=== PATIENT | male | born 1955 | race Caucasian/White ===

== ENCOUNTER → 2020-06-08 | Outpatient (CLI) | payer MEDICARE ==
[~2020-06-08] MED LIST: GADOTERATE 5 MMOL/10ML VIAL. IVP ONE
--- NOTE | 2020-06-08 12:10 | RAD ---
EXAM: Brain MRI with and without contrast. HISTORY: Squamous cell lung cancer. Staging evaluation. TECHNIQUE: Multiplanar, multisequence magnetic resonance imaging of the brain was performed prior to and following the administration of intravenous contrast. COMPARISON: None. FINDINGS: There is no restricted diffusion to suggest acute or subacute infarction. There is no susce ptibility effect to suggest hemorrhage. There is no mass effect or midline shift. No suspicious enhan cing lesion is seen. There is no hydrocephalus. There are multiple small focal areas of signal change within the cerebral white matter, most commonly due to chronic small vessel disease in a patient of this age. There is evidence of lens surgery. The re is ethmoid sinus mucosal thickening and a tiny right maxillary sinus mucous retention cyst. There is benign asymmetry in the thickness of the left greater the right frontal bone. The presence of an o verlying right frontal scalp soft tissue defect favors a postoperative etiology. The mastoid air cells are clear. There are normal flow voids within the cerebral vessels. There is no suspicious finding involving the visualized proximal cervical spine. IMPRESSION: 1. No acute intracranial finding or evidence of intracranial metastatic disease. 2. Small focal areas of signal change within the cerebral white matter, likely due to chronic small v essel disease. Electronically signed by: Dawn Buckley MD (06/08/2020 12:08 PM) [id number]
--- NOTE | 2020-06-11 13:44 | RAD ---
EXAM: NM PET/CT SKULL BASE TO MID THIGH EXAM DATE: 06/08/2020 INDICATION: Lung cancer. Initial staging. RADIOPHARMACEUTICAL: 14.3 mCi of F-18 Fluorodeoxyglucose (FDG) I.V. via the right forearm. TECHNIQUE: Patient weight: 220 pounds. Following at least four-hour fasting, the patient's blood gluc ose was 116 mg/dl. Approximately 1 hour after administration of FDG, overlapping emission scanning w as performed from the orbital meatal line through the pelvis. A low-dose CT was performed for attenu ation correction purposes and anatomic localization. Fused images of PET and CT were reviewed. Any s tandardized uptake values (SUV) reported are maximum values within a volume region of interest, expre ssed in gm/ml. COMPARISON: CT angiogram chest of 05/30/2020 FINDINGS: PET: In the head and neck, no abnormal FDG uptake is appreciated. In the chest, extensive mediastinal and right hilar adenopathy shows abnormal FDG uptake, including t he superior right paratracheal britton station to a max SUV of 19.3, the right lower paratracheal britton station to a max SUV of 20.1, bulky right hilar mass or adenopathy to a max SUV of 17.1, and subcari nal britton lymphadenopathy to a max SUV of 15.6. For comparison, patient's background mediastinal acti vity shows a max SUV of 2.51. Previously described lobulated pleural-based right lower lobe pulmonary mass shows abnormal FDG activity to a max SUV of 20.3. In the abdomen and pelvis, no abnormal FDG uptake is apparent. No abnormal FDG uptake identified in the bones. CT: In the head and neck, no mass or adenopathy is apparent. In the chest, bulky mediastinal and right hilar adenopathy is present resulting in narrowing of the r ight upper lobe and right middle lobe bronchi. A few calcified mediastinal lymph nodes are also noted . Cardiovascular system shows multiple coronary calcifications. The lungs show moderate centrilobular pattern emphysema and post surgical changes consistent with wedge resection biopsies of the bilatera l lung apices. The right lower lobe lung nodule measures 3.8 x 2.9 x 3.7 cm and shows on image 148 of series 3, findings suspicious for local invasion into the subpleural fat. No pneumothorax or pleural effusion. No acute or aggressive appearing bony lesions. Chest wall shows radiopaque punctate foreig n bodies in the anterior right lateral chest wall and in the anterior left chest wall. These could re flect surgical clips from previous thoracoscopy. In the abdomen and pelvis, mild nodular fullness of the lateral limb left adrenal gland is present, s howing no abnormal FDG uptake. Solid abdominal organs otherwise are unremarkable. The bowel shows ext ensive colonic diverticulosis without findings of acute diverticulitis. No evidence of obstruction, p erforation or acute inflammation. No abdominal adenopathy or mass. The prostate measures 5.2 x 4.4 cm . No free fluid, fluid collection and no free air. Circumscribed sclerotic 8 mm lesion in the left sacrum is suggestive of a benign bone island. IMPRESSION: A nearly 4 cm right lower lobe lung mass is associated with bulky ipsilateral hilar and mediastinal l ymphadenopathy, consistent with a primary lung malignancy. There are no PET/CT findings suggestive of extrathoracic metastatic disease. Electronically signed by: Rupert Hernandez MD (06/11/2020 1:41 PM) [id number]
== END ==
LOC: PETSC 07:48
PROVIDERS: ATTEND Radiology Radiation Oncology
DX: C34.31 Malignant neoplasm of lower lobe, right bronchus or lung (principal); I73.9 Peripheral vascular disease, unspecified; J34.1 Cyst and mucocele of nose and nasal sinus; J34.89 Other specified disorders of nose and nasal sinuses
CPT/HCPCS: 70553; 78815; A9552; A9575

== ENCOUNTER → 2020-06-11 | Outpatient (CLI) | payer MEDICARE ==
[~2020-06-11] MED LIST changes: +ACET325T21 PO; +ALBU2.5V8 INH; +AMOX1TAB61 PO; +ASPI-886 PO; +BUDE10.2 IH; +CEFD300C PO; +CEPH750C6 PO; +DIGO125T3 PO; +DOCU-153 PO; +FENT1PAT17 TD; +FLUT1AER2 INH; +FORM20VI IH; -GADOTERATE 5 MMOL/10ML VIAL. IVP ONE; +GUAI100L12 PO; +HYDR-2761 PO; +HYDR25TA PO; +IPRA3AMP29 NEB; +LORA-434 PO; +MELA3TAB43 PO; +MULT200T10 PO; +OMEP40CA7 PO; +OXYC10TA PO; +PANT40TA77 PO; +PRED-220 PO; +SERT25TA PO; +TAMS0.4C97 PO
[2020-06-11 15:58] LABS: BASO # 0.1 x10^3/uL (0.0-0.2); BASO % 0 % (0-3); EOS # 0.2 x10^3/uL (0.0-0.7); EOS % 2 % (0-3); HEMATOCRIT 44.2 % (39.0-53.0); LYMPH # 2.6 x10^3/uL (1.0-4.8); LYMPH % 16 % (24-48); MEAN CORPUSCULAR HEMOGLOBIN 32 pg (25-35); MEAN CORPUSCULAR HGB CONC 34 g/dL (31-37); MEAN CORPUSCULAR VOLUME 95 fL (79-100); MONO # 0.8 x10^3/uL (0.0-1.1); MONO % 5 % (0-9); NEUT # 12.9 x10^3/uL (1.8-7.7); NEUT % 77 % (31-73); PLATELET COUNT 296 x10^3/uL (140-400); RED BLOOD COUNT 4.68 x10^6/uL (4.30-5.70); RED CELL DISTRIBUTION WIDTH 13.6 % (11.5-14.5); WHITE BLOOD COUNT 16.7 x10^3/uL (4.0-11.0)
[2020-06-11 16:03] LABS: CALCIUM 9.5 mg/dL (8.5-10.1); CREATININE 0.9 mg/dL (0.7-1.3); GFR 85.2; POTASSIUM 3.5 mmol/L (3.5-5.1)
[2020-06-11 16:09] LABS: ALBUMIN 3.5 g/dL (3.4-5.0); ALBUMIN/GLOBULIN RATIO 0.9 (1.0-1.7); TOTAL BILIRUBIN 0.5 mg/dL (0.2-1.0); TOTAL PROTEIN 7.5 g/dL (6.4-8.2)
[2020-06-11 17:07] LABS: % EOS 1 % (0-5); % LYMPHS 11 % (24-48); % MONOS 6 % (0-10); % SEGS 82 % (35-66); PLT ESTIMATE ADEQUATE (ADEQUATE)
== END ==
LOC: ONCLAB 15:26
PROVIDERS: ATTEND Internal Medicine Hematology & Oncology
DX: C34.31 Malignant neoplasm of lower lobe, right bronchus or lung (principal)
CPT/HCPCS: 36415; 80053; 85007; 85025

== ENCOUNTER 2020-06-18 08:52 | Outpatient (CLI) | payer MEDICARE ==
[~2020-06-18] VITALS: Ht 188 cm; Wt 102.1 kg
[2020-06-18] MEDS ORDERED: ceFAZolin SODIUM IV Push 1 GM VIAL. IVP ONE (09:00)
[2020-06-18] MEDS ORDERED: BUDE10.2 IH (09:37)
[2020-06-18] MEDS ORDERED: HYDR-2761 PO (09:37)
[2020-06-18] MEDS ORDERED: HYDR25TA PO (09:37)
[2020-06-18] MEDS ORDERED: MULT200T10 PO (09:37)
[2020-06-18] MEDS ORDERED: MELA3TAB43 PO (09:37)
[2020-06-18] MEDS ORDERED: OMEP40CA7 PO (09:37)
[2020-06-18] MEDS ORDERED: ALBU2.5V8 INH (09:37)
[2020-06-18] MEDS ORDERED: FORM20VI IH (09:37)
[2020-06-18 09:42] LABS: BASO # 0.1 x10^3/uL (0.0-0.2); BASO % 1 % (0-3); EOS # 0.3 x10^3/uL (0.0-0.7); EOS % 2 % (0-3); HEMATOCRIT 35.5 % (39.0-53.0); HEMOGLOBIN 12.2 g/dL (13.0-17.5); LYMPH # 1.1 x10^3/uL (1.0-4.8); LYMPH % 10 % (24-48); MEAN CORPUSCULAR HEMOGLOBIN 33 pg (25-35); MEAN CORPUSCULAR HGB CONC 35 g/dL (31-37); MEAN CORPUSCULAR VOLUME 96 fL (79-100); MONO # 0.8 x10^3/uL (0.0-1.1); MONO % 7 % (0-9); NEUT # 9.3 x10^3/uL (1.8-7.7); NEUT % 81 % (31-73); PLATELET COUNT 251 x10^3/uL (140-400); RED BLOOD COUNT 3.71 x10^6/uL (4.30-5.70); RED CELL DISTRIBUTION WIDTH 13.5 % (11.5-14.5); WHITE BLOOD COUNT 11.5 x10^3/uL (4.0-11.0)
[2020-06-18 09:46] VITALS: BP 122/75
[2020-06-18 09:51] LABS: CREATININE 0.8 mg/dL (0.7-1.3); GFR 97.3; POTASSIUM 3.9 mmol/L (3.5-5.1)
[2020-06-18 09:52] LABS: PROTHROMBIN TIME PATIENT 13.4 SEC (11.7-14.0)
[2020-06-18 09:57] LABS: ALBUMIN 2.7 g/dL (3.4-5.0); ALBUMIN/GLOBULIN RATIO 0.6 (1.0-1.7); TOTAL BILIRUBIN 0.8 mg/dL (0.2-1.0); TOTAL PROTEIN 7.2 g/dL (6.4-8.2)
[2020-06-18] MEDS ORDERED: ALBUTEROL SULFATE 2.5 MG/3 ML NEBU. ONE (10:09)
[2020-06-18] MEDS ORDERED: ALBUTEROL SULFATE 2.5 MG/3 ML NEBU. NEB ONE (10:15)
[2020-06-18] MEDS ORDERED: LIDOCAINE 2%/EPI 1:100,000 20 ML VIAL. ONE (10:47)
[2020-06-18] MEDS ORDERED: fentaNYL PF VIAL 100 MCG/2 ML VIAL ONE (11:21)
[2020-06-18] MEDS ORDERED: MIDAZOLAM HCL/PF 5 MG/5 ML VIAL. ONE (11:21)
[2020-06-18] MEDS ORDERED: fentaNYL PF VIAL 100 MCG/2 ML VIAL IV ONE (11:45)
[2020-06-18] MEDS ORDERED: LIDOCAINE 2%/EPI 1:100,000 20 ML VIAL. IJ ONE (11:45)
[2020-06-18] MEDS ORDERED: MIDAZOLAM HCL/PF 5 MG/5 ML VIAL. IV ONE (11:45)
[2020-06-18 11:57] VITALS: BP 111/72
[2020-06-18 12:05] VITALS: BP 134/72
[2020-06-18 12:20] VITALS: BP 128/79
[2020-06-18 12:35] VITALS: BP 134/78
[2020-06-18 12:50] VITALS: BP 129/78
--- NOTE | 2020-06-18 13:15 | NUR ---
Patient taken to [facility] via wheelchair by RN. PIV removed. No bleeding at port site, bandage present. Family accompanied patient. On home O2. Instructions provided on site care, moderate sedation, portacath. Verbalized understanding. All belongings taken w/ patient at time of d/c from [facility].
--- NOTE | 2020-06-19 10:17 | RAD ---
Procedure: Ultrasound and fluoroscopically guided placement of left internal jugular power port.. 06/19/2020 8:12 AM Clinical Indication: LUNG CA Sedation: Conscious sedation was administered for 32 minutes. The patient was monitored by a qualified independent observer throughout the time of sedation. Please refer to the medical record for exact doses of medications utilized to achieve moderate sedation. Fluoroscopy time: 0.8 minutes Dose area product: 4 Gycm2 Consent: The procedure was explained in its entirety to the patient or the patients designated insurance follow up representative by a member of the treatment team, including a discussion of the risks, benefits and commonly accepted alternatives to the procedure, as well as the expected consequences of no therapy whatsoever. Discussion of the risks included, but was not limited to, those that are most frequent and those that are rare but possibly severe or life-threatening, as well as the possibility of unforeseen complications. Technique and Findings: All elements of maximal sterile barrier technique including the use of a cap, mask, sterile gown, sterile gloves, large sterile sheet, appropriate hand hygiene, and 2% chlorhexidine for cutaneous antisepsis (or acceptable alternative antiseptic per current guidelines) were followed for this procedure. Following informed consent, and a timeout procedure, the patient was prepped and draped in the usual sterile fashion. Ultrasound interrogation of the left neck revealed patency and compressibility of the right internal jugular vein. A 21-gauge micropuncture was then used to gain access to this vein under ultrasound guidance. A hard copy ultrasound image was recorded. The needle was exchanged over a wire for a sheath. A 1 inch incision was made several centimeters inferior to the venotomy site. A catheter was tunneled from this site dermatotomy site in the neck. Catheter was advanced through peel-away sheath such that its tip was in the proximal right atrium with the patient supine. The catheter was trimmed to length and connected to the port reservoir. The port was found to flush and aspirate normally. The wound was closed in layers using 4-0 Vicryl suture. Sterile dressings were applied. Impression: Successful ultrasound and fluoroscopically guided placement of a left internal jugular PowerPort
--- NOTE | 2020-07-07 10:50 | RAD ---
Chest AP portable 07/07/2020. Reason for exam: Chest pain and shortness of air. Comparison is made with a study of 06/18/2020. A Port-A-Cath remains in place. There still evidence of pulmonary fibrosis on each side. An opacity i n the mid right lung has regressed. There is still fullness of the right hilum. No new consolidation or pleural fluid is seen. The heart does not appear enlarged. IMPRESSION: Regression of right-sided opacity. No apparent new infiltrate. Electronically signed by: Delroy Medina Jr., MD (07/07/2020 10:48 AM) [id number]
[2020-08-03] MEDS ORDERED: SERT25TA PO (22:23)
[2020-08-03] MEDS ORDERED: OXYC10TA PO (22:23)
[2020-08-03] MEDS ORDERED: TAMS0.4C97 PO (22:23)
[2020-08-03] MEDS ORDERED: PANT40TA77 PO (22:23)
[2020-08-03] MEDS ORDERED: DIGO125T3 PO (22:23)
[2020-08-03] MEDS ORDERED: CEPH750C6 PO (22:23)
[2020-08-03] MEDS ORDERED: LORA-434 PO (22:23)
[2020-08-07] MEDS ORDERED: CEFD300C PO (08:40)
[2020-08-29] MEDS ORDERED: AMOX1TAB61 PO (11:41)
[2020-08-29] MEDS ORDERED: ACET325T21 PO (11:41)
[2020-08-29] MEDS ORDERED: PRED-220 PO (11:41)
[2020-08-29] MEDS ORDERED: GUAI100L12 PO (11:41)
[2020-08-29] MEDS ORDERED: IPRA3AMP29 NEB (11:41)
[2020-08-29] MEDS ORDERED: ASPI-886 PO (11:41)
[2020-08-29] MEDS ORDERED: FENT1PAT17 TD (11:41)
[2020-08-29] MEDS ORDERED: DOCU-153 PO (11:41)
[2020-08-29] MEDS ORDERED: FLUT1AER2 INH (11:41)
== END 2020-06-18 13:00 | disposition home or self-care (01) ==
LOC: INTRAD 08:52
PROVIDERS: ATTEND Internal Medicine Hematology & Oncology
DX: Z45.2 Encounter for adjustment and management of vascular access device (principal); C34.90 Malignant neoplasm of unspecified part of unspecified bronchus or lung; J44.9 Chronic obstructive pulmonary disease, unspecified; K21.9 Gastro-esophageal reflux disease without esophagitis; Z87.891 Personal history of nicotine dependence; Z79.899 Other long term (current) drug therapy; Z98.890 Other specified postprocedural states; Z88.5 Allergy status to narcotic agent
CPT/HCPCS: 36415; 36561; 76937; 77001; 80053; 85025; 85610; 87426; 94640; 99152; 99153; C1751; C1892; J0690; J2250; J3010; J3490; J7613; U0003; C9803

== ENCOUNTER → 2020-06-18 | Outpatient (CLI) | payer MEDICARE ==
[~2020-06-18] MED LIST changes: -ACET325T21 PO; -AMOX1TAB61 PO; -ASPI-886 PO; -CEFD300C PO; -CEPH750C6 PO; -DIGO125T3 PO; -DOCU-153 PO; -FENT1PAT17 TD; -FLUT1AER2 INH; -GUAI100L12 PO; -IPRA3AMP29 NEB; -LORA-434 PO; +OMEP40CA45 PO; -OMEP40CA7 PO; -OXYC10TA PO; -PANT40TA77 PO; -PRED-220 PO; -SERT25TA PO; -TAMS0.4C97 PO
[2020-06-18 12:50] VITALS: BP 129/78
[2020-06-18 14:20] LABS: BASO # 0.1 x10^3/uL (0.0-0.2); BASO % 1 % (0-3); EOS # 0.3 x10^3/uL (0.0-0.7); EOS % 2 % (0-3); HEMATOCRIT 35.1 % (39.0-53.0); LYMPH # 0.9 x10^3/uL (1.0-4.8); LYMPH % 9 % (24-48); MEAN CORPUSCULAR HEMOGLOBIN 33 pg (25-35); MEAN CORPUSCULAR HGB CONC 34 g/dL (31-37); MEAN CORPUSCULAR VOLUME 95 fL (79-100); MONO # 0.8 x10^3/uL (0.0-1.1); MONO % 8 % (0-9); NEUT # 8.4 x10^3/uL (1.8-7.7); NEUT % 81 % (31-73); PLATELET COUNT 247 x10^3/uL (140-400); RED BLOOD COUNT 3.69 x10^6/uL (4.30-5.70); RED CELL DISTRIBUTION WIDTH 13.4 % (11.5-14.5); WHITE BLOOD COUNT 10.5 x10^3/uL (4.0-11.0)
[2020-06-18 14:39] LABS: CALCIUM 8.8 mg/dL (8.5-10.1); CREATININE 0.9 mg/dL (0.7-1.3); POTASSIUM 3.9 mmol/L (3.5-5.1)
[2020-06-18 14:51] LABS: ALBUMIN 2.5 g/dL (3.4-5.0); ALBUMIN/GLOBULIN RATIO 0.5 (1.0-1.7); TOTAL BILIRUBIN 0.5 mg/dL (0.2-1.0); TOTAL PROTEIN 7.1 g/dL (6.4-8.2)
== END ==
LOC: ONCLAB 14:12
PROVIDERS: ATTEND Physician Assistant
DX: C34.31 Malignant neoplasm of lower lobe, right bronchus or lung (principal)
CPT/HCPCS: 36415; 80053; 83615; 85025

== ENCOUNTER → 2020-06-26 | Outpatient (CLI) | payer MEDICARE ==
[2020-06-24 11:16] VITALS: BP 146/100
[2020-06-26 08:37] LABS: BASO # 0.1 x10^3/uL (0.0-0.2); BASO % 0 % (0-3); EOS # 0.2 x10^3/uL (0.0-0.7); EOS % 1 % (0-3); HEMATOCRIT 40.1 % (39.0-53.0); HEMOGLOBIN 13.1 g/dL (13.0-17.5); LYMPH # 0.8 x10^3/uL (1.0-4.8); LYMPH % 5 % (24-48); MEAN CORPUSCULAR HEMOGLOBIN 31 pg (25-35); MEAN CORPUSCULAR HGB CONC 33 g/dL (31-37); MEAN CORPUSCULAR VOLUME 96 fL (79-100); MONO # 0.6 x10^3/uL (0.0-1.1); MONO % 4 % (0-9); NEUT # 15.4 x10^3/uL (1.8-7.7); NEUT % 90 % (31-73); PLATELET COUNT 239 x10^3/uL (140-400); RED BLOOD COUNT 4.19 x10^6/uL (4.30-5.70); RED CELL DISTRIBUTION WIDTH 13.6 % (11.5-14.5); WHITE BLOOD COUNT 17.1 x10^3/uL (4.0-11.0)
[2020-06-26 08:43] LABS: CALCIUM 8.9 mg/dL (8.5-10.1); CREATININE 0.9 mg/dL (0.7-1.3); POTASSIUM 3.8 mmol/L (3.5-5.1)
[2020-06-26 08:59] LABS: ALBUMIN 2.6 g/dL (3.4-5.0); ALBUMIN/GLOBULIN RATIO 0.7 (1.0-1.7); TOTAL BILIRUBIN 0.4 mg/dL (0.2-1.0); TOTAL PROTEIN 6.5 g/dL (6.4-8.2)
[2020-06-26 11:27] LABS: % EOS 3 % (0-5); % LYMPHS 4 % (24-48); % MONOS 2 % (0-10); % MYELOS 2 % (0-0); % SEGS 89 % (35-66)
[2020-06-26 11:29] LABS: PLT ESTIMATE ADEQUATE (ADEQUATE)
== END ==
LOC: ONCLAB 08:15
PROVIDERS: ATTEND Internal Medicine Hematology & Oncology
DX: C34.31 Malignant neoplasm of lower lobe, right bronchus or lung (principal)
CPT/HCPCS: 36415; 80053; 85007; 85025

== ENCOUNTER → 2020-06-28 | Outpatient (CLI) | payer MEDICARE ==
[2020-06-24 11:16] VITALS: BP 146/100
[2020-06-28 10:19] LABS: BASO % 0 % (0-3); EOS # 0.2 x10^3/uL (0.0-0.7); EOS % 1 % (0-3); HEMATOCRIT 39.7 % (39.0-53.0); HEMOGLOBIN 12.9 g/dL (13.0-17.5); LYMPH # 0.9 x10^3/uL (1.0-4.8); LYMPH % 6 % (24-48); MEAN CORPUSCULAR HEMOGLOBIN 31 pg (25-35); MEAN CORPUSCULAR HGB CONC 33 g/dL (31-37); MEAN CORPUSCULAR VOLUME 96 fL (79-100); MONO # 0.7 x10^3/uL (0.0-1.1); MONO % 5 % (0-9); NEUT # 13.1 x10^3/uL (1.8-7.7); NEUT % 88 % (31-73); PLATELET COUNT 231 x10^3/uL (140-400); RED BLOOD COUNT 4.13 x10^6/uL (4.30-5.70); RED CELL DISTRIBUTION WIDTH 13.9 % (11.5-14.5); WHITE BLOOD COUNT 14.9 x10^3/uL (4.0-11.0)
[2020-06-28 10:27] LABS: CALCIUM 8.6 mg/dL (8.5-10.1); CREATININE 0.9 mg/dL (0.7-1.3)
== END ==
LOC: ONCLAB 09:45
PROVIDERS: ATTEND Physician Assistant
DX: C34.31 Malignant neoplasm of lower lobe, right bronchus or lung (principal)
CPT/HCPCS: 36415; 80048; 85025

== ENCOUNTER 2020-06-29 21:51 | Emergency (ER) | payer MEDICARE ==
[~2020-06-29] VITALS: Ht 195.6 cm; Wt 98.6 kg
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
[2020-06-29] MEDS ORDERED: ASPIRIN CHEWABLE 81 MG TABLET. PO ONE (22:45)
[2020-06-29 22:59] LABS: BASO % 0 % (0-3); EOS # 0.1 x10^3/uL (0.0-0.7); EOS % 1 % (0-3); HEMATOCRIT 39.4 % (39.0-53.0); HEMOGLOBIN 13.2 g/dL (13.0-17.5); LYMPH # 0.8 x10^3/uL (1.0-4.8); LYMPH % 6 % (24-48); MEAN CORPUSCULAR HEMOGLOBIN 32 pg (25-35); MEAN CORPUSCULAR HGB CONC 33 g/dL (31-37); MEAN CORPUSCULAR VOLUME 95 fL (79-100); MONO # 0.7 x10^3/uL (0.0-1.1); MONO % 5 % (0-9); NEUT # 13.3 x10^3/uL (1.8-7.7); NEUT % 89 % (31-73); PLATELET COUNT 211 x10^3/uL (140-400); RED BLOOD COUNT 4.13 x10^6/uL (4.30-5.70)
[2020-06-29 23:09] LABS: PROTHROMBIN TIME PATIENT 12.3 SEC (11.7-14.0)
[2020-06-29 23:13] LABS: CALCIUM 8.6 mg/dL (8.5-10.1); GFR 75.2; POTASSIUM 4.2 mmol/L (3.5-5.1)
[2020-06-29 23:19] LABS: ALBUMIN 2.7 g/dL (3.4-5.0); ALBUMIN/GLOBULIN RATIO 0.7 (1.0-1.7); MAGNESIUM 2.3 mg/dL (1.8-2.4); TOTAL BILIRUBIN 0.3 mg/dL (0.2-1.0); TOTAL PROTEIN 6.5 g/dL (6.4-8.2)
[2020-06-29 23:20] LABS: % BANDS 2 % (0-9); % EOS 1 % (0-5); % LYMPHS 8 % (24-48); % METAS 2 % (0-0); % MONOS 4 % (0-10); % MYELOS 2 % (0-0); % SEGS 81 % (35-66)
[2020-06-29 23:21] LABS: PLT ESTIMATE ADEQUATE (ADEQUATE)
[2020-06-29] MEDS ORDERED: dilTIAZem IV PUSH 25 MG/5 ML VIAL IVP ONE (23:30)
[2020-06-29] MEDS ORDERED: IOHEXOL 350 MG/ML 100 ML VIAL. IV ONE (23:45)
[2020-06-29] MEDS ORDERED: CONTRAST GIVEN. MC PRN (23:45)
--- NOTE | 2020-06-30 00:04 | RAD ---
CTA scan of the Chest with Contrast (Pulmonary Embolism protocol) 06/29/2020 Clinical History: Chest pain. History of lung cancer. Technique: After the intravenous administration of 100 cc of Omnipaque 350, contiguous, 0.625 mm axia l sections were obtained through the chest. 2 mm axial and 3D MIP coronal and sagittal reconstructed images were obtained. One or more of the following individualized dose reduction techniques were utilized for this study: 1. Automated exposure control. 2. Adjustment of the mA and/or kV according to patient size. 3. Use of iterative reconstruction technique. Findings: Comparison study is dated 06/18/2020. No filling defect is seen within the major branches of either pulmonary artery. There is no CT eviden ce of pulmonary embolism. A left internal jugular Tkovek-m-Oddn type catheter is unchanged. The heart is mildly enlarged. Ather osclerotic calcification thoracic aorta is seen. The thoracic aorta is tortuous but tapers normally. Enlarged right hilar and mediastinal lymph nodes are seen which measure 2 to 5.3 cm in size. They hav e decreased in size since the previous examination where they measured 2.5 to 6.5 cm in size. Moderate to severe bullous emphysematous changes are seen involving both lungs. A masslike opacity is seen involving the right lower lobe which measures 3.2 cm in size. This has decreased in size slight ly since the previous examination where it measured 4.1 cm in size. No pneumothorax or pleural effusi on is seen. Impression: There is no CT evidence of pulmonary embolism. Electronically signed by: Mitchell Riggins MD (06/30/2020 12:02 AM) [id number]
[2020-06-30 00:17] LABS: BILIRUBIN,URINE NEGATIVE (NEG); CLARITY,URINE CLEAR; COLOR,URINE YELLOW; NITRITE,URINE NEGATIVE (NEG); PROTEIN,URINE NEGATIVE (NEG-TRACE); UROBILINOGEN,URINE 0.2 mg/dL (0.2 mg/dL)
[2020-06-30 00:25] LABS: BACTERIA,URINE 0 /HPF (0-FEW); RBC,URINE 0 /HPF (0-2); WBC,URINE OCC /HPF (0-4)
--- NOTE | 2020-06-30 00:31 | EKG ---
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
--- NOTE | 2020-06-30 00:31 | EKG ---
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
[2020-06-30 00:33] VITALS: BP 144/78
== END 2020-06-30 01:06 | disposition home or self-care (01) ==
LOC: ER 21:51
DX: R07.89 Other chest pain (principal); I48.91 Unspecified atrial fibrillation; R06.02 Shortness of breath; R05 Cough; Z85.118 Personal history of other malignant neoplasm of bronchus and lung; Z87.891 Personal history of nicotine dependence; Z88.5 Allergy status to narcotic agent
CPT/HCPCS: 36415; 71275; 80053; 81001; 83605; 83690; 83735; 83880; 84484; 85007; 85025; 85610; 85730; 93005; 99284; Q9967

== ENCOUNTER → 2020-07-03 | Outpatient (CLI) | payer MEDICARE ==
[2020-06-30 00:33] VITALS: BP 144/78
[2020-07-03 09:44] LABS: BASO # 0.1 x10^3/uL (0.0-0.2); BASO % 0 % (0-3); EOS # 0.2 x10^3/uL (0.0-0.7); EOS % 1 % (0-3); HEMATOCRIT 38.5 % (39.0-53.0); HEMOGLOBIN 12.7 g/dL (13.0-17.5); LYMPH % 6 % (24-48); MEAN CORPUSCULAR HEMOGLOBIN 32 pg (25-35); MEAN CORPUSCULAR HGB CONC 33 g/dL (31-37); MEAN CORPUSCULAR VOLUME 96 fL (79-100); MONO # 0.9 x10^3/uL (0.0-1.1); MONO % 6 % (0-9); NEUT # 14.6 x10^3/uL (1.8-7.7); NEUT % 87 % (31-73); PLATELET COUNT 203 x10^3/uL (140-400); RED BLOOD COUNT 4.01 x10^6/uL (4.30-5.70); WHITE BLOOD COUNT 16.8 x10^3/uL (4.0-11.0)
[2020-07-03 10:10] LABS: CALCIUM 8.6 mg/dL (8.5-10.1); CREATININE 0.9 mg/dL (0.7-1.3); POTASSIUM 3.9 mmol/L (3.5-5.1)
[2020-07-03 10:16] LABS: ALBUMIN 2.8 g/dL (3.4-5.0); ALBUMIN/GLOBULIN RATIO 0.7 (1.0-1.7); TOTAL BILIRUBIN 0.3 mg/dL (0.2-1.0); TOTAL PROTEIN 6.7 g/dL (6.4-8.2)
== END ==
LOC: ONCLAB 08:49
PROVIDERS: ATTEND Internal Medicine Hematology & Oncology
DX: C34.31 Malignant neoplasm of lower lobe, right bronchus or lung (principal)
CPT/HCPCS: 36415; 80053; 85025

== ENCOUNTER 2020-07-07 09:49 | Emergency (ER) | payer MEDICARE ==
[~2020-07-07] VITALS: Ht 195.6 cm; Wt 100.0 kg
[~2020-07-07 09:49] MED LIST changes: -OMEP40CA45 PO; +OMEP40CA7 PO
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
[2020-07-07] MEDS ORDERED: oxyCODONE/APAP 10/325 1 TAB TABLET PO ONE (10:15)
[2020-07-07 10:18] LABS: BASO # 0.1 x10^3/uL (0.0-0.2); BASO % 1 % (0-3); EOS # 0.1 x10^3/uL (0.0-0.7); EOS % 1 % (0-3); HEMATOCRIT 36.6 % (39.0-53.0); HEMOGLOBIN 12.2 g/dL (13.0-17.5); LYMPH # 0.4 x10^3/uL (1.0-4.8); LYMPH % 3 % (24-48); MEAN CORPUSCULAR HEMOGLOBIN 32 pg (25-35); MEAN CORPUSCULAR HGB CONC 33 g/dL (31-37); MEAN CORPUSCULAR VOLUME 96 fL (79-100); MONO # 0.2 x10^3/uL (0.0-1.1); MONO % 2 % (0-9); NEUT # 11.3 x10^3/uL (1.8-7.7); NEUT % 93 % (31-73); PLATELET COUNT 131 x10^3/uL (140-400); RED BLOOD COUNT 3.82 x10^6/uL (4.30-5.70); RED CELL DISTRIBUTION WIDTH 13.9 % (11.5-14.5); WHITE BLOOD COUNT 12.2 x10^3/uL (4.0-11.0)
[2020-07-07 10:35] LABS: CALCIUM 8.5 mg/dL (8.5-10.1); CREATININE 0.9 mg/dL (0.7-1.3)
[2020-07-07 10:36] LABS: POTASSIUM 3.9 mmol/L (3.5-5.1)
[2020-07-07 10:38] LABS: PROTHROMBIN TIME PATIENT 12.6 SEC (11.7-14.0)
[2020-07-07 10:48] LABS: ALBUMIN 2.7 g/dL (3.4-5.0); ALBUMIN/GLOBULIN RATIO 0.8 (1.0-1.7); MAGNESIUM 1.7 mg/dL (1.8-2.4); TOTAL BILIRUBIN 0.5 mg/dL (0.2-1.0); TOTAL PROTEIN 6.3 g/dL (6.4-8.2)
--- NOTE | 2020-07-07 10:50 | RAD ---
Chest AP portable 07/07/2020. Reason for exam: Chest pain and shortness of air. Comparison is made with a study of 06/18/2020. A Port-A-Cath remains in place. There still evidence of pulmonary fibrosis on each side. An opacity i n the mid right lung has regressed. There is still fullness of the right hilum. No new consolidation or pleural fluid is seen. The heart does not appear enlarged. IMPRESSION: Regression of right-sided opacity. No apparent new infiltrate. Electronically signed by: Delroy Medina Jr., MD (07/07/2020 10:48 AM) [id number]
--- NOTE | 2020-07-07 10:56 | EKG ---
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
[2020-07-07] MEDS ORDERED: KETOROLAC 15 MG/ML VIAL. IVP ONE (11:00)
[2020-07-07 11:02] LABS: INFLUENZA A PATIENT NEGATIVE (NEGATIVE); INFLUENZA B PATIENT NEGATIVE (NEGATIVE)
--- NOTE | 2020-07-07 11:38 | RAD ---
Ultrasound venous system of the lower extremities 07/07/2020. Reason for exam: Chest pain. Evaluate for DVT as cause of PE. Color Doppler and spectral waveform analysis was performed along with real-time grayscale technique. The deep venous system of both lower extremities shows normal compressibility and normal Doppler flow and augmentation of flow extending from the common femoral segment to the popliteal segment. The vis ualized calf veins also appear normal. IMPRESSION: No evidence of DVT. Electronically signed by: Delroy Medina Jr., MD (07/07/2020 11:36 AM) [id number]
[2020-07-07 12:23] LABS: % BASOS 1 % (0-3); % LYMPHS 2 % (24-48); % MONOS 5 % (0-10); % SEGS 92 % (35-66); PLT ESTIMATE DECREASED (ADEQUATE)
[2020-07-07] MEDS ORDERED: DEXAMETHASONE SOD PHOS 20 MG/5 ML VIAL. IV ONE (12:30)
[2020-07-07] MEDS ORDERED: IPRATRPIUM/ALBUTEROL 0.5/2.5MG 3 ML NEBU. NEB ONE (12:30)
[2020-07-07 13:30] VITALS: BP 130/88
--- NOTE | 2020-07-09 09:10 | NUR ---
IP: Attempted to contact pt concerning COVID results. No answer. Left a voicemail to return the call.
--- NOTE | 2020-07-09 09:51 | NUR ---
IP: Pt returned the call and I informed him of his negative COVID results. Pt verbalized understanding but very upset of treatment in ED and him not having COVID and it was his heart and the ED just stuck him in a room alone. Then pt hung up on me.
[2020-08-03] MEDS ORDERED: SERT25TA PO (22:23)
[2020-08-03] MEDS ORDERED: LORA-434 PO (22:23)
[2020-08-03] MEDS ORDERED: OXYC10TA PO (22:23)
[2020-08-03] MEDS ORDERED: TAMS0.4C97 PO (22:23)
[2020-08-03] MEDS ORDERED: CEPH750C6 PO (22:23)
[2020-08-03] MEDS ORDERED: DIGO125T3 PO (22:23)
[2020-08-03] MEDS ORDERED: PANT40TA77 PO (22:23)
[2020-08-07] MEDS ORDERED: CEFD300C PO (08:40)
[2020-08-29] MEDS ORDERED: IPRA3AMP29 NEB (11:41)
[2020-08-29] MEDS ORDERED: FLUT1AER2 INH (11:41)
[2020-08-29] MEDS ORDERED: GUAI100L12 PO (11:41)
[2020-08-29] MEDS ORDERED: ACET325T21 PO (11:41)
[2020-08-29] MEDS ORDERED: PRED-220 PO (11:41)
[2020-08-29] MEDS ORDERED: ASPI-886 PO (11:41)
[2020-08-29] MEDS ORDERED: DOCU-153 PO (11:41)
[2020-08-29] MEDS ORDERED: FENT1PAT17 TD (11:41)
[2020-08-29] MEDS ORDERED: AMOX1TAB61 PO (11:41)
== END 2020-07-07 15:00 | disposition home or self-care (01) ==
LOC: ER 09:49
DX: J44.9 Chronic obstructive pulmonary disease, unspecified (principal); Z20.822 Contact with and (suspected) exposure to COVID-19; R07.89 Other chest pain; I48.91 Unspecified atrial fibrillation; Z87.891 Personal history of nicotine dependence; Z87.820 Personal history of traumatic brain injury; Z88.5 Allergy status to narcotic agent
CPT/HCPCS: 36415; 71045; 80053; 83605; 83690; 83735; 83880; 84484; 85007; 85025; 85610; 85730; 87040; 87804; 93005; 93970; 94640; 96374; 96375; 99284; C9803; J1100; J1885; U0003

== ENCOUNTER → 2020-07-10 | Outpatient (CLI) | payer MEDICARE ==
[2020-07-07 13:30] VITALS: BP 130/88
[~2020-07-10] MED LIST changes: +ACET325T21 PO; +AMOX1TAB61 PO; +ASPI-886 PO; +CEFD300C PO; +CEPH750C6 PO; +DIGO125T3 PO; +DOCU-153 PO; +FENT1PAT17 TD; +FLUT1AER2 INH; +GUAI100L12 PO; +IPRA3AMP29 NEB; +LORA-434 PO; +OMEP40CA45 PO; -OMEP40CA7 PO; +OXYC10TA PO; +PANT40TA77 PO; +PRED-220 PO; +SERT25TA PO; +TAMS0.4C97 PO
[2020-07-10 09:28] LABS: BASO # 0.1 x10^3/uL (0.0-0.2); BASO % 1 % (0-3); EOS # 0.3 x10^3/uL (0.0-0.7); EOS % 2 % (0-3); HEMATOCRIT 36.5 % (39.0-53.0); HEMOGLOBIN 12.3 g/dL (13.0-17.5); LYMPH # 0.6 x10^3/uL (1.0-4.8); LYMPH % 6 % (24-48); MEAN CORPUSCULAR HEMOGLOBIN 32 pg (25-35); MEAN CORPUSCULAR HGB CONC 34 g/dL (31-37); MEAN CORPUSCULAR VOLUME 95 fL (79-100); MONO # 0.3 x10^3/uL (0.0-1.1); MONO % 3 % (0-9); NEUT # 9.4 x10^3/uL (1.8-7.7); NEUT % 89 % (31-73); PLATELET COUNT 113 x10^3/uL (140-400); RED BLOOD COUNT 3.82 x10^6/uL (4.30-5.70); RED CELL DISTRIBUTION WIDTH 14.1 % (11.5-14.5); WHITE BLOOD COUNT 10.6 x10^3/uL (4.0-11.0)
[2020-07-10 09:37] LABS: CALCIUM 8.9 mg/dL (8.5-10.1); CREATININE 0.8 mg/dL (0.7-1.3); GFR 97.3
[2020-07-10 09:42] LABS: ALBUMIN/GLOBULIN RATIO 0.8 (1.0-1.7); TOTAL BILIRUBIN 0.6 mg/dL (0.2-1.0); TOTAL PROTEIN 6.8 g/dL (6.4-8.2)
[2020-07-10 10:09] LABS: DIG 0.2 ng/mL (0.9-2.0)
[2020-07-10 11:12] LABS: % BASOS 1 % (0-3); % LYMPHS 8 % (24-48); % MONOS 2 % (0-10); % SEGS 89 % (35-66)
[2020-07-10 11:13] LABS: PLT ESTIMATE DECREASED (ADEQUATE)
== END ==
LOC: ONCLAB 09:15
PROVIDERS: ATTEND Internal Medicine Hematology & Oncology
DX: C34.31 Malignant neoplasm of lower lobe, right bronchus or lung (principal); I48.0 Paroxysmal atrial fibrillation
CPT/HCPCS: 36415; 80053; 80162; 85007; 85025

== ENCOUNTER → 2020-07-17 | Outpatient (CLI) | payer MEDICARE ==
[2020-07-07 13:30] VITALS: BP 130/88
[~2020-07-17] MED LIST changes: -ACET325T21 PO; -AMOX1TAB61 PO; -ASPI-886 PO; -CEFD300C PO; -CEPH750C6 PO; -DIGO125T3 PO; -DOCU-153 PO; -FENT1PAT17 TD; -FLUT1AER2 INH; -GUAI100L12 PO; -IPRA3AMP29 NEB; -LORA-434 PO; -OXYC10TA PO; -PANT40TA77 PO; -PRED-220 PO; -SERT25TA PO; -TAMS0.4C97 PO
[2020-07-17 09:32] LABS: BASO % 1 % (0-3); EOS # 0.3 x10^3/uL (0.0-0.7); EOS % 5 % (0-3); HEMATOCRIT 31.5 % (39.0-53.0); HEMOGLOBIN 10.8 g/dL (13.0-17.5); LYMPH # 0.3 x10^3/uL (1.0-4.8); LYMPH % 5 % (24-48); MEAN CORPUSCULAR HEMOGLOBIN 32 pg (25-35); MEAN CORPUSCULAR HGB CONC 34 g/dL (31-37); MEAN CORPUSCULAR VOLUME 94 fL (79-100); MONO # 0.2 x10^3/uL (0.0-1.1); MONO % 4 % (0-9); NEUT # 4.6 x10^3/uL (1.8-7.7); NEUT % 86 % (31-73); PLATELET COUNT 122 x10^3/uL (140-400); RED BLOOD COUNT 3.34 x10^6/uL (4.30-5.70); RED CELL DISTRIBUTION WIDTH 14.1 % (11.5-14.5); WHITE BLOOD COUNT 5.3 x10^3/uL (4.0-11.0)
[2020-07-17 09:46] LABS: CALCIUM 8.7 mg/dL (8.5-10.1); CREATININE 0.9 mg/dL (0.7-1.3)
[2020-07-17 09:52] LABS: ALBUMIN 2.9 g/dL (3.4-5.0); ALBUMIN/GLOBULIN RATIO 0.8 (1.0-1.7); TOTAL BILIRUBIN 0.5 mg/dL (0.2-1.0); TOTAL PROTEIN 6.6 g/dL (6.4-8.2)
== END ==
LOC: ONCLAB 08:31
PROVIDERS: ATTEND Internal Medicine Hematology & Oncology
DX: C34.31 Malignant neoplasm of lower lobe, right bronchus or lung (principal)
CPT/HCPCS: 36415; 80053; 85025

== ENCOUNTER → 2020-07-24 | Outpatient (CLI) | payer MEDICARE ==
[2020-07-07 13:30] VITALS: BP 130/88
[2020-07-24 08:27] LABS: BASO % 1 % (0-3); EOS # 0.1 x10^3/uL (0.0-0.7); EOS % 1 % (0-3); HEMATOCRIT 30.2 % (39.0-53.0); HEMOGLOBIN 10.3 g/dL (13.0-17.5); LYMPH # 0.2 x10^3/uL (1.0-4.8); LYMPH % 6 % (24-48); MEAN CORPUSCULAR HEMOGLOBIN 33 pg (25-35); MEAN CORPUSCULAR HGB CONC 34 g/dL (31-37); MEAN CORPUSCULAR VOLUME 96 fL (79-100); MONO # 0.2 x10^3/uL (0.0-1.1); MONO % 6 % (0-9); NEUT # 3.5 x10^3/uL (1.8-7.7); NEUT % 86 % (31-73); PLATELET COUNT 205 x10^3/uL (140-400); RED BLOOD COUNT 3.15 x10^6/uL (4.30-5.70); RED CELL DISTRIBUTION WIDTH 14.8 % (11.5-14.5)
[2020-07-24 08:39] LABS: CREATININE 0.8 mg/dL (0.7-1.3); GFR 97.3; POTASSIUM 3.9 mmol/L (3.5-5.1)
[2020-07-24 08:45] LABS: ALBUMIN 2.9 g/dL (3.4-5.0); ALBUMIN/GLOBULIN RATIO 0.8 (1.0-1.7); TOTAL BILIRUBIN 0.4 mg/dL (0.2-1.0); TOTAL PROTEIN 6.6 g/dL (6.4-8.2)
[2020-07-24 09:16] LABS: % BANDS 10 % (0-9); % EOS 2 % (0-5); % LYMPHS 8 % (24-48); % MONOS 6 % (0-10); % SEGS 74 % (35-66); ANISOCYTOSIS SLIGHT; PLT ESTIMATE ADEQUATE (ADEQUATE); POLYCHROMASIA OCCASIONAL
== END ==
LOC: ONCLAB 08:12
PROVIDERS: ATTEND Internal Medicine Hematology & Oncology
DX: C34.31 Malignant neoplasm of lower lobe, right bronchus or lung (principal)
CPT/HCPCS: 36415; 80053; 85007; 85025

== ENCOUNTER → 2020-07-31 | Outpatient (CLI) | payer MEDICARE ==
[2020-07-07 13:30] VITALS: BP 130/88
[2020-07-31 08:55] LABS: BASO % 1 % (0-3); EOS # 0.1 x10^3/uL (0.0-0.7); EOS % 2 % (0-3); HEMATOCRIT 29.3 % (39.0-53.0); HEMOGLOBIN 10.1 g/dL (13.0-17.5); LYMPH # 0.2 x10^3/uL (1.0-4.8); LYMPH % 7 % (24-48); MEAN CORPUSCULAR HEMOGLOBIN 33 pg (25-35); MEAN CORPUSCULAR HGB CONC 34 g/dL (31-37); MEAN CORPUSCULAR VOLUME 97 fL (79-100); MONO # 0.4 x10^3/uL (0.0-1.1); MONO % 10 % (0-9); NEUT % 81 % (31-73); PLATELET COUNT 225 x10^3/uL (140-400); RED BLOOD COUNT 3.02 x10^6/uL (4.30-5.70); WHITE BLOOD COUNT 3.7 x10^3/uL (4.0-11.0)
[2020-07-31 09:05] LABS: CALCIUM 8.8 mg/dL (8.5-10.1); CREATININE 0.8 mg/dL (0.7-1.3); GFR 97.3; POTASSIUM 4.1 mmol/L (3.5-5.1)
[2020-07-31 09:11] LABS: ALBUMIN 2.8 g/dL (3.4-5.0); ALBUMIN/GLOBULIN RATIO 0.7 (1.0-1.7); TOTAL BILIRUBIN 0.4 mg/dL (0.2-1.0); TOTAL PROTEIN 6.7 g/dL (6.4-8.2)
== END ==
LOC: ONCLAB 08:42
PROVIDERS: ATTEND Physician Assistant
DX: C34.31 Malignant neoplasm of lower lobe, right bronchus or lung (principal)
CPT/HCPCS: 36415; 80053; 85025

== ENCOUNTER → 2020-08-13 | Outpatient (CLI) | payer MEDICARE ==
[2020-08-07 11:00] VITALS: BP 110/65
[~2020-08-13] MED LIST changes: +CEFD300C PO; +CEPH750C6 PO; +DIGO125T3 PO; +LORA-434 PO; +OXYC10TA PO; +PANT40TA77 PO; +SERT25TA PO; +TAMS0.4C97 PO
[2020-08-13 08:52] LABS: BASO % 1 % (0-3); EOS # 0.2 x10^3/uL (0.0-0.7); EOS % 2 % (0-3); HEMATOCRIT 27.2 % (39.0-53.0); HEMOGLOBIN 9.3 g/dL (13.0-17.5); LYMPH # 0.4 x10^3/uL (1.0-4.8); LYMPH % 5 % (24-48); MEAN CORPUSCULAR HEMOGLOBIN 33 pg (25-35); MEAN CORPUSCULAR HGB CONC 34 g/dL (31-37); MEAN CORPUSCULAR VOLUME 98 fL (79-100); MONO % 12 % (0-9); NEUT # 7.2 x10^3/uL (1.8-7.7); NEUT % 81 % (31-73); PLATELET COUNT 130 x10^3/uL (140-400); RED BLOOD COUNT 2.79 x10^6/uL (4.30-5.70); RED CELL DISTRIBUTION WIDTH 18.4 % (11.5-14.5); WHITE BLOOD COUNT 8.9 x10^3/uL (4.0-11.0)
[2020-08-13 09:02] LABS: CALCIUM 8.6 mg/dL (8.5-10.1); CREATININE 0.7 mg/dL (0.7-1.3); GFR 113.5; POTASSIUM 3.7 mmol/L (3.5-5.1)
[2020-08-13 09:08] LABS: ALBUMIN 2.2 g/dL (3.4-5.0); ALBUMIN/GLOBULIN RATIO 0.5 (1.0-1.7); TOTAL BILIRUBIN 0.6 mg/dL (0.2-1.0); TOTAL PROTEIN 6.9 g/dL (6.4-8.2)
[2020-08-13 10:04] LABS: % BANDS 6 % (0-9); % LYMPHS 5 % (24-48); % METAS 1 % (0-0); % MONOS 10 % (0-10); % MYELOS 1 % (0-0); % SEGS 77 % (35-66)
[2020-08-13 10:05] LABS: ANISOCYTOSIS SLIGHT; PLT ESTIMATE DECREASED (ADEQUATE); POLYCHROMASIA SLIGHT
== END ==
LOC: ONCLAB 08:15
PROVIDERS: ATTEND Internal Medicine Hematology & Oncology
DX: C34.31 Malignant neoplasm of lower lobe, right bronchus or lung (principal)
CPT/HCPCS: 36415; 80053; 85007; 85025

== ENCOUNTER → 2020-08-21 | Outpatient (CLI) | payer MEDICARE ==
[2020-08-07 11:00] VITALS: BP 110/65
--- NOTE | 2020-08-21 14:26 | RAD ---
EXAM: XR CHEST 2V 08/21/2020 8:17 AM CLINICAL INDICATION: Squamous cell lung cancer COMPARISON: Chest radiograph 06/18/2019 TECHNIQUE: PA and lateral views of the chest FINDINGS: Right perihilar masslike consolidation has decreased. There are increased interstitial and alveolar opacities in the mid and lower left lung. Unchanged interstitial opacities in the right cortez g base. There are suture material in both upper lobes. The chest wall Port-A-Cath is unchanged with t ip over the superior cavoatrial junction. No pleural effusion or pneumothorax. No acute osseous abnor mality. IMPRESSION: 1. Decreased right perihilar masslike consolidation. 2. Increased interstitial and alveolar opacities in the left lung superimposed on chronic interstitia l lung disease may be due to infectious or inflammatory pneumonitis. Recommend attention after treatm ent to ensure resolution. Electronically signed by: Gloria Kovacs MD (08/21/2020 2:23 PM) [id number]
== END ==
LOC: RAD 08:01
PROVIDERS: ATTEND Internal Medicine Hematology & Oncology
DX: C34.31 Malignant neoplasm of lower lobe, right bronchus or lung (principal)
CPT/HCPCS: 71046

== ENCOUNTER → 2020-08-21 | Outpatient (CLI) | payer MEDICARE ==
[2020-08-07 11:00] VITALS: BP 110/65
[2020-08-21 09:24] LABS: BASO # 0.1 x10^3/uL (0.0-0.2); BASO % 1 % (0-3); EOS # 0.4 x10^3/uL (0.0-0.7); EOS % 5 % (0-3); HEMATOCRIT 29.1 % (39.0-53.0); HEMOGLOBIN 9.9 g/dL (13.0-17.5); LYMPH # 0.6 x10^3/uL (1.0-4.8); LYMPH % 7 % (24-48); MEAN CORPUSCULAR HEMOGLOBIN 34 pg (25-35); MEAN CORPUSCULAR HGB CONC 34 g/dL (31-37); MEAN CORPUSCULAR VOLUME 98 fL (79-100); MONO # 0.6 x10^3/uL (0.0-1.1); MONO % 7 % (0-9); NEUT # 6.7 x10^3/uL (1.8-7.7); NEUT % 80 % (31-73); PLATELET COUNT 94 x10^3/uL (140-400); RED BLOOD COUNT 2.96 x10^6/uL (4.30-5.70); RED CELL DISTRIBUTION WIDTH 19.7 % (11.5-14.5); WHITE BLOOD COUNT 8.3 x10^3/uL (4.0-11.0)
[2020-08-21 09:40] LABS: CALCIUM 9.2 mg/dL (8.5-10.1); CREATININE 0.9 mg/dL (0.7-1.3)
[2020-08-21 09:45] LABS: ALBUMIN 2.3 g/dL (3.4-5.0); ALBUMIN/GLOBULIN RATIO 0.4 (1.0-1.7); MAGNESIUM 1.8 mg/dL (1.8-2.4); TOTAL BILIRUBIN 0.5 mg/dL (0.2-1.0); TOTAL PROTEIN 7.8 g/dL (6.4-8.2)
== END ==
LOC: ONCLAB 08:07
PROVIDERS: ATTEND Internal Medicine Hematology & Oncology
DX: C34.31 Malignant neoplasm of lower lobe, right bronchus or lung (principal)
CPT/HCPCS: 36415; 80053; 83735; 85025

== ENCOUNTER → 2020-08-24 | Outpatient (CLI) | payer MEDICARE ==
[2020-08-07 11:00] VITALS: BP 110/65
[2020-08-24 08:49] LABS: BASO % 1 % (0-3); EOS # 0.6 x10^3/uL (0.0-0.7); EOS % 8 % (0-3); HEMATOCRIT 26.8 % (39.0-53.0); HEMOGLOBIN 9.1 g/dL (13.0-17.5); LYMPH # 0.7 x10^3/uL (1.0-4.8); LYMPH % 9 % (24-48); MEAN CORPUSCULAR HEMOGLOBIN 34 pg (25-35); MEAN CORPUSCULAR HGB CONC 34 g/dL (31-37); MEAN CORPUSCULAR VOLUME 99 fL (79-100); MONO # 0.5 x10^3/uL (0.0-1.1); MONO % 7 % (0-9); NEUT # 5.6 x10^3/uL (1.8-7.7); NEUT % 75 % (31-73); PLATELET COUNT 99 x10^3/uL (140-400); RED CELL DISTRIBUTION WIDTH 20.2 % (11.5-14.5); WHITE BLOOD COUNT 7.5 x10^3/uL (4.0-11.0)
[2020-08-24 09:04] LABS: CALCIUM 8.8 mg/dL (8.5-10.1); CREATININE 0.7 mg/dL (0.7-1.3); GFR 113.5; POTASSIUM 4.3 mmol/L (3.5-5.1)
[2020-08-24 09:09] LABS: ALBUMIN 2.5 g/dL (3.4-5.0); ALBUMIN/GLOBULIN RATIO 0.5 (1.0-1.7); TOTAL BILIRUBIN 0.4 mg/dL (0.2-1.0); TOTAL PROTEIN 7.5 g/dL (6.4-8.2)
[2020-08-24 10:04] LABS: ANISOCYTOSIS MOD; PLT ESTIMATE DECREASED (ADEQUATE)
== END ==
LOC: ONCLAB 08:12
PROVIDERS: ATTEND Internal Medicine Hematology & Oncology
DX: C34.31 Malignant neoplasm of lower lobe, right bronchus or lung (principal)
CPT/HCPCS: 36415; 80053; 85025

== ENCOUNTER → 2020-08-31 | Outpatient (CLI) | payer MEDICARE ==
[2020-08-29 11:00] VITALS: BP 130/77
[~2020-08-31] MED LIST changes: +ACET325T21 PO; +AMOX1TAB61 PO; +ASPI-886 PO; +DOCU-153 PO; +FENT1PAT17 TD; +FLUT1AER2 INH; +GUAI100L12 PO; +IPRA3AMP29 NEB; +PRED-220 PO
[2020-08-31 08:32] LABS: BASO % 0 % (0-3); EOS # 0.1 x10^3/uL (0.0-0.7); EOS % 1 % (0-3); HEMATOCRIT 30.2 % (39.0-53.0); LYMPH # 0.4 x10^3/uL (1.0-4.8); LYMPH % 3 % (24-48); MEAN CORPUSCULAR HEMOGLOBIN 34 pg (25-35); MEAN CORPUSCULAR HGB CONC 33 g/dL (31-37); MEAN CORPUSCULAR VOLUME 102 fL (79-100); MONO # 0.3 x10^3/uL (0.0-1.1); MONO % 3 % (0-9); NEUT # 10.8 x10^3/uL (1.8-7.7); NEUT % 92 % (31-73); PLATELET COUNT 206 x10^3/uL (140-400); RED BLOOD COUNT 2.98 x10^6/uL (4.30-5.70); RED CELL DISTRIBUTION WIDTH 21.5 % (11.5-14.5); WHITE BLOOD COUNT 11.7 x10^3/uL (4.0-11.0)
[2020-08-31 08:40] LABS: CALCIUM 8.8 mg/dL (8.5-10.1); CREATININE 0.8 mg/dL (0.7-1.3); GFR 97.3
[2020-08-31 08:47] LABS: ALBUMIN 2.8 g/dL (3.4-5.0); ALBUMIN/GLOBULIN RATIO 0.7 (1.0-1.7); TOTAL BILIRUBIN 0.3 mg/dL (0.2-1.0)
== END ==
LOC: ONCLAB 08:04
PROVIDERS: ATTEND Physician Assistant
DX: C34.31 Malignant neoplasm of lower lobe, right bronchus or lung (principal)
CPT/HCPCS: 36415; 80053; 85025